=== PATIENT | female | born 1950 | race Hispanic/Latino ===

== ENCOUNTER 2023-08-14 11:12 | Emergency (ER) | payer OTHER ==
[~2023-08-14] VITALS: Ht 165.1 cm; Wt 74.8 kg
[2023-08-14 11:23] VITALS: BP 139/82; PULSE 80; RESP 16; O2SAT 96
[2023-08-14] MEDS ORDERED: ACYC400T20 PO (12:10)
== END 2023-08-14 12:23 | disposition home or self-care (01) ==
LOC: EDH 11:12
DX: B00.1 Herpesviral vesicular dermatitis (principal); E78.00 Pure hypercholesterolemia, unspecified; I10 Essential (primary) hypertension; Z90.49 Acquired absence of other specified parts of digestive tract